=== PATIENT | male | born 1960 | race Asian ===

== ENCOUNTER 2016-11-12 06:28 | Day surgery (SDC) | payer OTHER ==
[~2016-11-12] VITALS: Ht 172.7 cm; Wt 64.4 kg
[2016-11-12 06:42] VITALS: BP 138/90
[2016-11-12 10:09] VITALS: BP 109/68
== END 2016-11-12 10:05 | disposition home or self-care (01) ==
LOC: DS 06:28 → GI 07:30 → OR 07:30 → DS 10:05
PROVIDERS: Internal Medicine Gastroenterology
PROC: 0DB58ZX Excision of Esophagus, Via Natural or Artificial Opening Endoscopic, Diagnostic (ICD-10-PCS; principal; 2016-11-12 07:30)
PROC: 0DB68ZX Excision of Stomach, Via Natural or Artificial Opening Endoscopic, Diagnostic (ICD-10-PCS; 2016-11-12 07:30)
DX: K20.0 Eosinophilic esophagitis (principal); I10 Essential (primary) hypertension; Z79.82 Long term (current) use of aspirin; Z79.84 Long term (current) use of oral hypoglycemic drugs; Z68.21 Body mass index [BMI] 21.0-21.9, adult
CPT/HCPCS: 43235; J1200; J1610; J2250; J2310; J3010; J3490

== ENCOUNTER 2018-09-11 06:45 | Day surgery (SDC) | payer OTHER ==
[~2018-09-11] VITALS: Ht 172.7 cm; Wt 65.8 kg
[2018-09-11 07:13] VITALS: BP 130/92
[2018-09-11 09:55] VITALS: BP 109/60
== END 2018-09-11 10:25 | disposition home or self-care (01) ==
LOC: DS 06:45 → OR 07:30 → DS 10:25
PROVIDERS: Internal Medicine Gastroenterology
PROC: 0D5G8ZZ Destruction of Left Large Intestine, Via Natural or Artificial Opening Endoscopic (ICD-10-PCS; principal; 2018-09-11 07:30)
PROC: 0DBF8ZZ Excision of Right Large Intestine, Via Natural or Artificial Opening Endoscopic (ICD-10-PCS; 2018-09-11 07:30)
DX: K64.8 Other hemorrhoids (principal); Q27.33 Arteriovenous malformation of digestive system vessel; D12.2 Benign neoplasm of ascending colon; Z86.010 Personal history of colon polyps; Z80.0 Family history of malignant neoplasm of digestive organs; Z68.43 Body mass index [BMI] 50.0-59.9, adult
CPT/HCPCS: 45378; J1200; J1610; J2250; J2310; J3010; J3490

== ENCOUNTER 2018-10-08 03:56 | Emergency (ER) | payer OTHER ==
[~2018-10-08] VITALS: Ht 172.7 cm; Wt 65.8 kg
[2018-10-08 04:07] VITALS: Ht 172.7 cm; Wt 65.8 kg
[2018-10-08 06:09] VITALS: BP 118/76
== END 2018-10-08 06:09 | disposition home or self-care (01) ==
LOC: ED 03:56
DX: J40 Bronchitis, not specified as acute or chronic (principal); J06.9 Acute upper respiratory infection, unspecified; I10 Essential (primary) hypertension; E78.00 Pure hypercholesterolemia, unspecified
CPT/HCPCS: 87804

== ENCOUNTER 2019-09-02 00:35 | Emergency (ER) | payer OTHER ==
[~2019-09-02] VITALS: Ht 172.7 cm; Wt 67.1 kg
[2019-09-02 00:42] VITALS: Ht 172.7 cm; Wt 67.1 kg
[2019-09-02 02:59] LABS: BASOPHIL % 0.3 % (0-2); PLATELET COUNT 204 x10^3mcL (130-400)
[2019-09-02 03:08] LABS: CALCIUM 8.7 mg/dL (8.5-10.1); CARBON DIOXIDE 29.4 mmol/L (21-32); CHLORIDE SERUM 105 mmol/L (98-107); GFR1 > 60 mL/min; GLUCOSE SERUM 98 mg/dL (74-106); POTASSIUM SERUM 3.8 mmol/L (3.5-5.1); SODIUM SERUM 140 mmol/L (136-145)
[2019-09-02 03:12] LABS: ALBUMIN 3.6 g/dL (3.4-5.0); ALKALINE PHOSPHATASE 60 U/L (46-116); ALT/SGPT 53 U/L (16-63); AST/SGOT 29 U/L (15-37); BILIRUBIN TOTAL 0.24 mg/dL (0.20-1.00); LIPASE 144 IU/L (73-393); TOTAL PROTEIN, SERUM 6.6 g/dL (6.4-8.2)
[2019-09-02 04:18] VITALS: BP 137/84
== END 2019-09-02 04:18 | disposition home or self-care (01) ==
LOC: ED 00:35
PROVIDERS: Emergency Medicine
DX: R10.13 Epigastric pain (principal); I10 Essential (primary) hypertension; E78.00 Pure hypercholesterolemia, unspecified
CPT/HCPCS: 36415; Q0092

== ENCOUNTER 2019-10-16 07:47 | Day surgery (SDC) | payer OTHER ==
[~2019-10-16] VITALS: Ht 172.7 cm; Wt 67.6 kg
[2019-10-16 08:05] VITALS: BP 126/80
[2019-10-16 11:48] VITALS: BP 116/76
== END 2019-10-16 11:15 | disposition home or self-care (01) ==
LOC: OR 07:47
DX: K21.0 Gastro-esophageal reflux disease with esophagitis (principal); I10 Essential (primary) hypertension; E78.00 Pure hypercholesterolemia, unspecified; Z98.890 Other specified postprocedural states; Z80.0 Family history of malignant neoplasm of digestive organs; Z79.899 Other long term (current) drug therapy
CPT/HCPCS: 43235; 87081; J1200; J1610; J2250; J2310; J3010; J3490